=== PATIENT | male | born 1985 | race Caucasian/White ===

== ENCOUNTER 2020-10-03 11:22 | Emergency (ER) | payer BC ==
--- NOTE | 2020-10-03 12:52 | ER ---
DATE SEEN: 10/03/2020 CHIEF COMPLAINT: Injury of the right hand. HISTORY OF PRESENT ILLNESS: A 35-year-old who punched the wall yesterday. He complains of pain in the right hand. REVIEW OF SYSTEMS: No fever. MEDICATIONS: Reviewed. PHYSICAL EXAMINATION: VITAL SIGNS: Afebrile, blood pressure 181/103. EXTREMITIES: Right hand revealed a deformity of the 5th metacarpal. DIAGNOSTIC DATA: X-ray confirmed a boxer's fracture slightly displaced. IMPRESSION: Boxer's fracture of the right. PLAN: An ulnar gutter splint was placed. The patient was advised to keep it for 3 weeks. Check an x-ray at that time. I recommend also follow up with PCP in the next 1 to 2 days to discuss his blood pressure. /[id number] MARGE/MESHA
--- NOTE | 2020-10-05 10:11 | CR ---
INDICATION: Pain after hitting wall. RIGHT HAND: Three views of the right hand were obtained 10/03/20 and revealed a comminuted fracture of the distal metaphysis of the 5th metacarpal with adequate position and alignment of the fracture fragments. Degenerative changes are also noted, most likely posttraumatic osteoarthritic type at the 5th metacarpocarpal joint. Minimal degenerative changes are noted at the 1st metacarpophalangeal joint and interphalangeal joint of the thumb as well as at the 3rd metacarpophalangeal joint. Bone density appeared to be normal. IMPRESSION: 1. Comminuted fracture distal 5th metacarpal with adequate position and alignment suggested. 2. 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 3. Arthritis. MTDD
== END 2020-10-03 12:25 | disposition home or self-care (01) ==
LOC: FB.ED 11:22
DX: S62.336A Displaced fracture of neck of fifth metacarpal bone, right hand, initial encounter for closed fracture (principal); W22.01XA Walked into wall, initial encounter
CPT/HCPCS: 29125; 73130-RT; 99283-25

== ENCOUNTER 2025-05-13 16:03 | Emergency (ER) | payer BC ==
[2025-05-13] MEDS ORDERED: Acetaminophen/oxyCODONE 325-5 MG Tab PO ONE (16:04)
[2025-05-13] MEDS: Acetaminophen/oxyCODONE 325-5 MG Tab PO ONE (18:21)
[2025-05-13] MEDS: Ketorolac 30 MG/ML SDV IM ONE (18:21)
== END 2025-05-13 19:20 | disposition home or self-care (01) ==
LOC: FB.ED 16:03
DX: M54.50 Low back pain, unspecified (principal); M79.662 Pain in left lower leg; I10 Essential (primary) hypertension; E11.9 Type 2 diabetes mellitus without complications; F17.210 Nicotine dependence, cigarettes, uncomplicated
CPT/HCPCS: 96372; 99283; A9270; J1885; J7512